=== PATIENT | female | born 1995 | race Caucasian/White ===

== ENCOUNTER → 2019-11-11 21:02 | Observation (INO) ==
[2019-11-11 20:01] LABS: Bilirubin,Urine Negative (Negative); Blood,Urine Moderate (Negative); Clarity,Urine Cloudy (Clear); Color,Urine Yellow (Yellow); Glucose,Urine (UA) Normal (Normal); Ketones,Urine Trace mg/dL (Negative); Leukocyte Esterase,Urine Moderate (Negative); Nitrite,Urine Negative (Negative); PH,Urine 6.5 pH Units (5.0-8.0); Protein,Urine 30 mg/dL (Neg-Trace); Specific Gravity,Urine > 1.030 (1.010-1.025); Urobilinogen,Urine Normal (Normal)
[2019-11-11 20:12] LABS: Bacteria,Urine Moderate per hpf (None-Few); Hyaline Casts,Urine Few per lpf (None-Few); Squamous Epithelial Cell,Urine Many per lpf (None-Few); WBC,Urine 50-100 per hpf (0-3)
[2019-11-11 20:24] LABS: RBC,Urine 0-3 per hpf (0-3)
[2019-11-11 22:34] LABS: Candida DNA Not Detected (Not Detect); Gardnerella DNA DETECTED (Not Detect); Trichomonas DNA Not Detected (Not Detect)
== END | disposition home or self-care (01) ==
LOC: 1NENULAB
PROVIDERS: ADMIT Advanced Practice Midwife; ATTEND Advanced Practice Midwife

== ENCOUNTER 2020-03-12 09:15 | Inpatient (IN) ==
[2020-03-12] MEDS ORDERED: Naloxone 0.4 MG/ML INJ IVP PRN (09:39)
[2020-03-12] MEDS ORDERED: *HR* FentaNYL (PF) 100 MCG/2 ML VIAL IVP PRN (09:39)
[2020-03-12] MEDS ORDERED: Azithromycin 500 MG in 0.9 % Sodium Chloride 250 ML IVPB PRN (09:39)
[2020-03-12] MEDS ORDERED: Ondansetron 4 MG/2 ML VIAL IVP PRN (09:39)
[2020-03-12] MEDS ORDERED: Lidocaine 1% 20 ML MDV INFILT PRN (09:39)
[2020-03-12] MEDS ORDERED: Metoclopramide 10 MG/2 ML VIAL IVP PRN (09:39)
[2020-03-12] MEDS ORDERED: Famotidine 20 MG/2 ML VIAL IVP PRN (09:39)
[2020-03-12 10:04] LABS: Basophils % 0.2 %; Eosinophils # 0.1 K/mcL (0.0-0.6); Eosinophils % 0.5 %; Hemoglobin 10.2 g/dL (11.5-15.4); Immature Granulocytes % 0.6 % (0-4); Lymphocytes # 2.8 K/mcL (0.6-4.6); Lymphocytes % 26.9 %; Mean Corpuscular HGB Conc 32.9 g/dL (31.6-35.5); Mean Corpuscular Hemoglobin 29.8 pg (28.0-33.3); Mean Corpuscular Volume 90.6 fL (83.0-100.0); Mean Platelet Volume 11.1 fL (9.4-12.4); Monocytes # 0.9 K/mcL (0.0-1.3); Monocytes % 8.6 %; Neutrophils # 6.7 K/mcL (1.6-8.9); Platelet Count 299 K/mcL (140-400); Red Blood Count 3.42 M/mcL (3.82-4.97); Red Cell Distribution Width 12.8 % (11.5-14.5); Segmented Neutrophils % 63.2 %; White Blood Count 10.6 K/mcL (4.3-11.1)
[2020-03-12] MEDS ORDERED: miSOPROStoL 25 MCG TABLET PO PRN (10:05)
[2020-03-12] MEDS: Ringers Solution, Lactated 1,000 ML IVC SCH ×2 (10:22→11:50)
[2020-03-12] MEDS ORDERED: EPHEDrine 50 MG/ML VIAL IVP PRN (10:46)
[2020-03-12] MEDS ORDERED: *HR* FentaNYL (PF) 100 MCG/2 ML VIAL EP ONE (10:46)
[2020-03-12] MEDS ORDERED: Bupivacaine-MPF 0.25% 10 ML VIAL EP ONE (10:46)
[2020-03-12] MEDS ORDERED: Bupivacaine-MPF 0.25% 10 ML VIAL ONE (10:49)
[2020-03-12] MEDS ORDERED: *HR* FentaNYL (PF) 100 MCG/2 ML VIAL ONE ×3 (10:50→16:27)
[2020-03-12 10:52] LABS: Amphetamine Screen,Urine Negative ng/mL (Cutoff=1000); Barbiturate Screen,Urine Negative ng/mL (Cutoff=200); Benzodiazepines Screen,Urine Negative ng/mL (Cutoff=200); Cannabinoid Screen,Urine Positive ng/mL (Cutoff = 50); Cocaine Screen,Urine Negative ng/mL (Cutoff= 300); Opiate Screen,Urine Negative ng/mL (Cutoff=300); Phencyclidine Screen,Urine Negative ng/mL (Cutoff=25)
[2020-03-12] MEDS ORDERED: Epidural Premix (fent/bupiv) 110 ML EP SCH (11:00)
[2020-03-12] MEDS ORDERED: Ropivacaine/PF 0.2% 20 ML VIAL ONE ×2 (12:26→16:27)
[2020-03-12] MEDS ORDERED: Oxytocin 20 units/ LR 1000 mL 20 UNIT/1,000 ML BAG IVC ONE ×2 (14:06→19:21)
[2020-03-12] MEDS ORDERED: 0.9 % Sodium Chloride 1,000 ML ONE (17:34)
[2020-03-12] MEDS ORDERED: Oxytocin 20 units/ LR 1000 mL 20 UNIT/1,000 ML BAG IVC SCH ×2 (19:30→21:01)
[2020-03-12] MEDS ORDERED: Rho Immune Globulin 1,500 UNIT SYRINGE IM PRN (21:01)
[2020-03-12] MEDS ORDERED: Measles/Mumps/Rubella Vacc 0.5 ML VIAL SQ PRN (21:01)
[2020-03-12] MEDS: Ibuprofen 600 MG TABLET PO PRN (21:55)
[2020-03-12] MEDS: Acetaminophen 325 MG TABLET PO PRN (23:04)
[2020-03-13] MEDS: Ibuprofen 600 MG TABLET PO PRN ×2 (05:02→13:53)
[2020-03-13 05:20] LABS: Basophils % 0.2 %; Eosinophils # 0.1 K/mcL (0.0-0.6); Eosinophils % 0.8 %; Hematocrit 32.1 % (35.3-44.9); Hemoglobin 10.8 g/dL (11.5-15.4); Immature Granulocytes % 0.5 % (0-4); Lymphocytes # 3.4 K/mcL (0.6-4.6); Lymphocytes % 25.2 %; Mean Corpuscular HGB Conc 33.6 g/dL (31.6-35.5); Mean Corpuscular Hemoglobin 30.3 pg (28.0-33.3); Mean Corpuscular Volume 89.9 fL (83.0-100.0); Mean Platelet Volume 11.2 fL (9.4-12.4); Monocytes # 0.8 K/mcL (0.0-1.3); Monocytes % 6.3 %; Neutrophils # 8.9 K/mcL (1.6-8.9); Platelet Count 278 K/mcL (140-400); Red Blood Count 3.57 M/mcL (3.82-4.97); Red Cell Distribution Width 12.7 % (11.5-14.5); White Blood Count 13.3 K/mcL (4.3-11.1)
[2020-03-13] MEDS: Acetaminophen 325 MG TABLET PO PRN (08:25)
[2020-03-13] MEDS ORDERED: Prenatal Vit/FA 1 EACH TABLET PO SCH (09:00)
[2020-03-13] MEDS ORDERED: [UNRECOGNIZED DRUG - OTHER] PO SCH (09:00)
[2020-03-13] MEDS ORDERED: Lidocaine 1% 20 ML MDV ID ONE (09:13)
[2020-03-13] MEDS ORDERED: Etonogestrel 68 MG IMPLANT IL ONE (09:13)
[2020-03-13 15:46] VITALS: BP 116/73
== END 2020-03-13 18:35 | disposition home or self-care (01) | DRG 807 ==
LOC: 1NENULAB 09:15 → 1NENUOBS 20:49
PROVIDERS: ADMIT Student in an Organized Health Care Education/Training Program; ATTEND Student in an Organized Health Care Education/Training Program